=== PATIENT | female | born 1960 | race Caucasian/White ===

== ENCOUNTER → 2018-11-24 | Outpatient (CLI) | payer OTHER ==
[~2018-11-24] MED LIST: ALEV220T26 PO; ASPI81TA85 PO; ATOR1TAB21 PO; CALC500T49 PO; FISH1000 PO; GLUC750T22 PO; SKINNY FIBER PO; ZOSTCRE TOP
--- NOTE | 2018-12-01 10:49 | SLEEPCENT ---
DATE OF PROCEDURE: 11/24/2018 ORDERING PROVIDER: Dr. Corado. Dr. Ohara. INTERPRETATION: Nocturnal polysomnography was performed for the titration of pressure therapy in this patient with a clinical diagnosis of apnea syndrome confirmed by home testing revealing a respiratory event index of 11.7. For testing, a Respironics width nasal mask of small to medium size was used, 4 cm of water pressure applied to the circuit and the lights were extinguished. 7 hours 55 minutes of data were reviewed. There were 54 minutes of sleep identified. Sleep latency was prolonged at 92 minutes. REM latency was prolonged at 206 minutes. Sleep architecture did eventually improve. Overall sleep efficiency was 76.7%. The electrocardiogram showed a sinus rhythm with an average heart rate of 60 beats per minute. EEG showed some alpha intrusion into non-REM stages. Overall no focal events were seen. There were normal waveforms for awake and sleep. Respiratory events were fully palliated with CPAP at a pressure of +6. Significant limb activity was noted, however, limb movement arousal index was only 5.3. IMPRESSION: Obstructive sleep apnea syndrome (G47.33) RECOMMENDATIONS: Nightly use of pressure therapy 6 cm of water.
== END ==
LOC: M SLEEP 19:39
PROVIDERS: ATTEND Internal Medicine Pulmonary Disease
DX: G47.33 Obstructive sleep apnea (adult) (pediatric) (principal)

== ENCOUNTER → 2019-01-16 | Outpatient (CLI) | payer OTHER ==
--- NOTE | 2019-01-17 10:19 | REP ---
REASON: Low back pain after trauma. PRIORS: None. There is a levoconvex curve. There is a minimal grade L4 upon L5 spondylolisthesis. Degenerative facet joint changes are present at every level bilaterally. There is anterior lipping at every level. There is disc space narrowing which is mild to moderate at every level. There is a slight anterior wedge compression deformity involving T11. IMPRESSION: 1. Chronic changes as described above. 2. Minimal L5 upon S1 spondylolisthesis likely secondary to degenerative facet joint disease. 3. Deformity involving T11 as described above which needs to be correlated clinically. If marrow edema is of clinical concern as a result of acute trauma, then an MRI would be recommended. Electronically Signed by Earl Fay DO 01/17/2019 01:51 P
--- NOTE | 2019-01-17 10:21 | REP ---
REASON: Pain after trauma. COMPARISON: None. FINDINGS: The joint space is symmetric and relatively well maintained. There is no acute fracture or dislocation. Electronically Signed by Earl Fay DO 01/17/2019 01:51 P
== END ==
LOC: M WUC 17:05
PROVIDERS: ATTEND Physician Assistant
DX: S70.01XA Contusion of right hip, initial encounter (principal); X58.XXXA Exposure to other specified factors, initial encounter; Y92.89 Other specified places as the place of occurrence of the external cause; M43.17 Spondylolisthesis, lumbosacral region; M43.16 Spondylolisthesis, lumbar region; M25.78 Osteophyte, vertebrae

== ENCOUNTER → 2021-01-18 | Outpatient (CLI) | payer OTHER ==
[~2021-01-18] MED LIST changes: -ASPI81TA85 PO; +ASPI81TA86 PO
--- NOTE | 2021-01-18 15:54 | REP ---
INDICATION: PAIN. Bilateral hand pain. COMPARISON: None. TECHNIQUE: Eight views, bilateral study four views on each side. FINDINGS: Four views of the right and four views of the left hand demonstrate overall normal mineralization. There is mild osteoarthritic spurring and joint space narrowing at the DIP joint of the long finger, the PIP and DIP joints of the 5th finger of the left hand. There are mild osteoarthritic spurs at the DIP joints of the index and small and long finger on the right. Mild spurring is seen at the IP joint of the thumb on the right. No acute erosive changes seen. IMPRESSION: Osteoarthritic changes the small joints of the hands bilaterally as above <Electronically signed by Gomez Ramirez > 01/18/21 [id number]
== END ==
LOC: M SOG 14:15
PROVIDERS: ATTEND Orthopaedic Surgery Sports Medicine
DX: M19.041 Primary osteoarthritis, right hand (principal); M19.042 Primary osteoarthritis, left hand; M79.642 Pain in left hand; M79.641 Pain in right hand

== ENCOUNTER → 2021-08-20 | Outpatient (REF) | payer OTHER | LOC: M LAB REF 12:40 | PROVIDERS: ATTEND Physician Assistant Medical | DX: J02.9 Acute pharyngitis, unspecified (principal) ==

== ENCOUNTER → 2022-09-26 | Outpatient (CLI) | payer OTHER | LOC: M CARPUL 10:51 | PROVIDERS: ATTEND Nurse Practitioner Family | DX: R06.02 Shortness of breath (principal) ==

== ENCOUNTER → 2022-11-28 | Outpatient (CLI) | payer OTHER ==
[~2022-11-28] MED LIST changes: +METHACHOLINE KIT INH ONE
== END ==
LOC: M CARPUL 11-07 15:38
PROVIDERS: ATTEND Nurse Practitioner Family
DX: R06.02 Shortness of breath (principal)
CPT/HCPCS: 94070; J7674

== ENCOUNTER → 2022-12-10 | Outpatient (CLI) | payer OTHER ==
[~2022-12-10] MED LIST changes: -METHACHOLINE KIT INH ONE
== END ==
LOC: M PLAIMG 13:51
PROVIDERS: ATTEND Nurse Practitioner Family
DX: R06.02 Shortness of breath (principal)
CPT/HCPCS: 71046; G0463

== ENCOUNTER → 2024-01-14 | Outpatient (CLI) | payer OTHER | LOC: M WHC 16:16 | PROVIDERS: ATTEND Nurse Practitioner Family | DX: Z12.31 Encounter for screening mammogram for malignant neoplasm of breast (principal) ==

== ENCOUNTER 2024-10-12 11:37 | Emergency (ER) | payer OTHER ==
[2024-10-12] MEDS ORDERED: SERTRALINE (11:48)
[2024-10-12 12:23] LABS: BASO % 0.5 % (0.0-1.0); EOS # 0.2 10^3/uL (0.0-0.5); EOS % 1.8 % (0.0-3.0); HEMATOCRIT 40.4 % (36.0-47.0); HEMOGLOBIN 13.6 g/dl (12.0-15.5); LYMPH # 2.2 10^3/uL (1.5-5.0); MEAN CORPUSCULAR HEMOGLOBIN 31.3 pg (27.0-33.0); MEAN CORPUSCULAR HGB CONC 33.7 g/dl (32.0-36.5); MEAN CORPUSCULAR VOLUME 93.1 fl (80.0-96.0); MONO # 0.7 10^3/uL (0.0-0.8); MONO % 7.7 % (2.0-8.0); NEUTROPHILS # 5.7 10^3/uL (1.5-8.5); NEUTROPHILS % 64.8 % (36.0-66.0); PLATELET COUNT, AUTOMATED 192 10^3/uL (150-450); RED BLOOD COUNT 4.34 10^6/uL (4.00-5.40); WHITE BLOOD COUNT 8.8 10^3/uL (4.0-10.0)
[2024-10-12] MEDS: ASPIRIN 81MG CHEW TABLET PO ONE (12:24)
[2024-10-12 12:51] LABS: CK-MB VALUE MASS 2.6 NG/ML (<3.6)
[2024-10-12 12:52] LABS: LIPASE 40 U/L (12-53)
[2024-10-12 12:53] LABS: CPK CREATINE PHOSPHOKINASE 218 U/L (34-145); MB/CK RELATIVE INDEX 1.19 (< OR =4)
[2024-10-12 12:54] LABS: ALBUMIN 4.3 G/DL (3.2-5.2); ALKALINE PHOSPHATASE 78 U/L (35-104); ALT/SGPT 23 U/L (7.0-40); AST/SGOT 20 U/L (<34); BILIRUBIN,DIRECT 0.1 MG/DL (<0.4); BILIRUBIN,TOTAL 0.5 MG/DL (0.3-1.2); BLOOD UREA NITROGEN 24 MG/DL (9-23); CALCIUM LEVEL 9.2 MG/DL (8.3-10.6); CARBON DIOXIDE LEVEL 30 MMOL/L (20-31); CHLORIDE LEVEL 106 MMOL/L (98-107); CREATININE FOR GFR 0.85 MG/DL (0.55-1.30); GLOMERULAR FILTRATION RATE > 60.0 (>45); GLUCOSE, FASTING 103 MG/DL (74-106); POTASSIUM SERUM 4.3 MMOL/L (3.5-5.1); SODIUM LEVEL 143 MMOL/L (136-145); TOTAL PROTEIN 7.1 G/DL (5.7-8.2)
[2024-10-12 12:56] LABS: THYROID STIMULATING HORMONE 1.025 uIU/ML (0.55-4.78)
[2024-10-12] MEDS ORDERED: ISOVUE-370 76% 100ML VIAL As Ordered ONE (13:11)
[2024-10-12] MEDS ORDERED: ZOLO100T PO (13:22)
[2024-10-12] MEDS ORDERED: NAPR220C14 PO (13:22)
[2024-10-12] MEDS ORDERED: HOME MED LIST COMPLETE! XX SCH (13:25)
[2024-10-12 14:30] VITALS: BP 127/75
[2024-10-12 14:37] VITALS: TEMP 98.5; O2SAT 95
[2024-10-12 15:01] LABS: CK-MB VALUE MASS 2.1 NG/ML (<3.6)
[2024-10-12 15:02] LABS: CPK CREATINE PHOSPHOKINASE 175 U/L (34-145)
== END 2024-10-12 14:49 | disposition home or self-care (01) ==
LOC: M ED 11:37
DX: R07.9 Chest pain, unspecified (principal); M54.12 Radiculopathy, cervical region; M48.02 Spinal stenosis, cervical region; E78.5 Hyperlipidemia, unspecified; Z79.02 Long term (current) use of antithrombotics/antiplatelets; Z79.899 Other long term (current) drug therapy; Z91.040 Latex allergy status
CPT/HCPCS: 36415; 71045; 71275; 72125; 80048; 80076; 82550; 82553; 83690; 83880; 84439; 84443; 84484; 85025; 85730; 93005; 93041; 94760; 99285; Q9967

== ENCOUNTER → 2024-11-24 | Outpatient (CLI) | payer OTHER ==
[~2024-11-24] MED LIST changes: +ACET650T61 PO; +CARB PO; +CVS-161 PO; +GABA-1171 PO; +MV-M1TAB13 PO; +NAPR220C14 PO; +SERTRALINE; +SUGAR BLOCKER PO; +ZOLO100T PO
== END ==
LOC: M RAD 15:39
PROVIDERS: ATTEND Orthopaedic Surgery
DX: M50.21 Other cervical disc displacement, high cervical region (principal); M48.02 Spinal stenosis, cervical region

== ENCOUNTER 2024-12-01 09:17 | Day surgery (SDC) | payer OTHER ==
[~2024-12-01] VITALS: Ht 167.6 cm; Wt 81.6 kg
[~2024-12-01 09:17] MED LIST changes: +LIDOCAINE 2% 100MG/5ML SDV (FOR ANES.) As Ordered ONE; +propofoL 200 MG/20 ML VIAL As Ordered ONE
[2024-12-01] MEDS ORDERED: METOPROLOL 5 MG/5 ML VIAL As Ordered ONE (10:38)
[2024-12-01 10:45] VITALS: TEMP 96.6
[2024-12-01 11:05] VITALS: BP 146/82; O2SAT 95
== END 2024-12-01 11:11 | disposition home or self-care (01) ==
LOC: M OPP 09:17
PROVIDERS: ATTEND Internal Medicine Gastroenterology
DX: Z12.11 Encounter for screening for malignant neoplasm of colon (principal); K64.0 First degree hemorrhoids; K57.30 Diverticulosis of large intestine without perforation or abscess without bleeding; E78.00 Pure hypercholesterolemia, unspecified; R73.03 Prediabetes; M19.90 Unspecified osteoarthritis, unspecified site; G47.30 Sleep apnea, unspecified; Z91.040 Latex allergy status; Z79.899 Other long term (current) drug therapy

== ENCOUNTER → 2025-02-10 | Outpatient (CLI) | payer OTHER ==
[~2025-02-10] MED LIST changes: -LIDOCAINE 2% 100MG/5ML SDV (FOR ANES.) As Ordered ONE; -propofoL 200 MG/20 ML VIAL As Ordered ONE
== END ==
LOC: M WHC 14:03
PROVIDERS: ATTEND Family Medicine
DX: Z12.31 Encounter for screening mammogram for malignant neoplasm of breast (principal); M81.0 Age-related osteoporosis without current pathological fracture

== ENCOUNTER → 2025-05-09 | Outpatient (CLI) | payer OTHER | LOC: M WUC 13:52 | PROVIDERS: ATTEND Student in an Organized Health Care Education/Training Program | DX: S20.212A Contusion of left front wall of thorax, initial encounter (principal); X58.XXXA Exposure to other specified factors, initial encounter; Y92.9 Unspecified place or not applicable ==